=== PATIENT | female | born 1975 | race Caucasian/White ===

== ENCOUNTER 2018-08-27 07:46 | Emergency (ER) | payer BC ==
[~2018-08-27] VITALS: Ht 165.1 cm; Wt 125.6 kg
[2018-08-27 07:48] VITALS: BP 146/99
[2018-08-27] MEDS ORDERED: PROPARACAINE OPHTH 0.5%, 15ML ONE (08:00)
== END 2018-08-27 08:36 | disposition home or self-care (01) ==
LOC: ED 08:31
DX: B30.1 Conjunctivitis due to adenovirus (principal); H10.33 Unspecified acute conjunctivitis, bilateral; E03.9 Hypothyroidism, unspecified
CPT/HCPCS: 99282